=== PATIENT | female | born 1980 | race Caucasian/White ===

== ENCOUNTER 2021-10-07 10:30 | Day surgery (SDC) | payer OTHER ==
[2021-10-07] MEDS ORDERED: Decadron 4 MG INJ IV ONE (10:31)
[2021-10-07] MEDS ORDERED: LIDOCAINE HCL 2% 40 MG/2 ML IJ ONE (10:31)
[2021-10-07] MEDS ORDERED: DIPRIVAN 200 MG/20 ML IV ONE (11:53)
[2021-10-07] MEDS ORDERED: Lactated Ringers 1,000 ML IV ONE (12:56)
--- NOTE | 2021-10-07 13:19 | XRAY ---
Indication: Right C2-C5 MBB. Intraoperative fluoroscopy provided for 18 seconds. 2 digital spot image submitted for interpretation demonstrates posterior needle tips projecting over the expected right C2-C5 nerve roots. Correlate with intraoperative findings/report.
--- NOTE | 2021-10-07 13:21 | XRAY ---
18 seconds fluoroscopy time in surgery for right C2-C5 MBB.
== END 2021-10-07 12:13 | disposition home or self-care (01) ==
LOC: SDC-PAIN 10:30
PROVIDERS: ATTEND Psychiatry & Neurology Pain Medicine
DX: M47.812 Spondylosis without myelopathy or radiculopathy, cervical region (principal); Z79.899 Other long term (current) drug therapy
CPT/HCPCS: 64490; 64491; 64492; 72040; 77002; 81025; J1100; J2704